=== PATIENT | female | born 1945 | race Caucasian/White ===

== ENCOUNTER 2016-07-10 06:08 | Inpatient (IN) | payer OTHER ==
[2016-06-20 10:53] VITALS: BMI 22.0
--- NOTE | 2016-06-20 11:20 | PAT Medication Instructions ---
Service Date Jun 20, 2016. Current Home Medication List Alendronate/Cholecalciferol (Fosamax+D 70MG/2800 Iu), 1 TABLET PO WK Aspirin (Aspirin Ec), 81 MG PO QAM Calcium Carbonate-Vitamin D W/ (Caltrate 600 Plus), 1 TAB PO BID Cholecalciferol (Vitamin D3), 1 CAP PO QAM Multivitamin (Multivitamin), 1 TAB PO QAM Medication Instructions For Your Scheduled Surgery - Continue as directed: Alendronate/Cholecalciferol (Fosamax+D 70MG/2800 Iu), 1 TABLET PO WK - Hold the following medications the morning of surgery: Cholecalciferol (Vitamin D3), 1 CAP PO QAM Multivitamin (Multivitamin), 1 TAB PO QAM Calcium Carbonate-Vitamin D W/ (Caltrate 600 Plus), 1 TAB PO BID - Take the following medications the morning of surgery with a sip of water OTHERWISE NOTHING TO EAT OR DRINK AFTER MIDNIGHT: Aspirin (Aspirin Ec), 81 MG PO QAM - Take the following medications as scheduled the night before surgery: Calcium Carbonate-Vitamin D W/ (Caltrate 600 Plus), 1 TAB PO BID If you have any questions please call us at [phone] or [phone] or [phone]
[2016-06-20 12:07] LABS: PARTIAL THROMBOPLASTIN RATIO 1.1; PROTHROMBIN TIME (PATIENT) 10.5 SECONDS (9.0-12.0)
[2016-06-20 12:43] LABS: ESTIMATED AVERAGE GLUCOSE 111 mg/dl; HA1C FLAG Normal (Normal)
[2016-06-20 13:12] LABS: URINE APPEARANCE CLEAR (CLEAR); URINE BILIRUBIN NEG (NEG); URINE COLOR YELLOW; URINE NITRITE NEG (NEG); URINE SPECIFIC GRAVITY 1.011 (1.000-1.030); UROBILINOGEN NEG (NEG)
[2016-06-20 13:37] LABS: MANUAL MICROSCOPIC REQUIRED? NO; REVIEW REQ? NO
--- NOTE | 2016-06-20 15:21 | History and Physical ---
History & Physical Date Jun 20, 2016. Chief Complaint Right knee pain History of Present Illness Penny is a pleasant 70-year-old female who presents for preoperative evaluation prior to a right knee replacement. Patient states that they have been having pain in this knee for many years now, which has gradually worsened, it has now gotten to the point it is affecting her daily activities including walking, standing, going up and down steps. Patient has tried and failed conservative measures including PO NSAIDs and OTC bracing with no relief. At this point in time, patient has failed conservative measures and would like to proceed with a right knee replacement. Xrays showing marked valgus deformity. Past Medical/Surgical History She denies h/o Hypertension, high cholesterol, bleeding/clotting disorders. no h /o diabetes Additional History Hepatic Disease: No Endocrine Disorder: No Kidney Disease: No Hypertension: No Bleeding Tendencies: No Infectious Diseases: No Allergies Coded Allergies: No Known Allergies (Unverified , 06/20/16) Home Medications Scheduled Alendronate/Cholecalciferol (Fosamax+D 70MG/2800 Iu), 1 TABLET PO WK Aspirin (Aspirin Ec), 81 MG PO QAM Calcium Carbonate-Vitamin D W/ (Caltrate 600 Plus), 1 TAB PO BID Cholecalciferol (Vitamin D3), 1 CAP PO QAM Multivitamin (Multivitamin), 1 TAB PO QAM Physical Examination Skin: warm/dry, no rash Eyes: normal inspection, EOMI, sclerae normal ENT: normal ENT inspection, pharynx normal Head: normocephalic, atraumatic Neck: supple, no adenopathy, trachea midline Respiratory/Chest: lungs clear, normal breath sounds, no respiratory distress Cardiovascular: regular rate, rhythm, no edema, no murmur Abdomen / GI: normal bowel sounds, non tender Addiitonal Comments: Right Knee Strength LE * Strength Description - Knee: Right: strength is decreased. Knee ROM L * Active ROM - Flexion: 135 degrees, Extension: 0 degrees, Factors: normal, Description: active pain free range of motion. Passive ROM - Flexion: 135 degrees, Extension: 0 degrees, Factors: normal, Description: passive pain free range of motion. Knee ROM R * Active ROM - Flexion: 120 degrees, Extension: 5 degrees, Factors: pain, Description: active painful range of motion. Passive ROM - Flexion: 135 degrees, Extension: 0 degrees, Factors: pain, Description: passive painful range of motion. Strength LE Normal Strength Description - Hip: Right: strength is normal. Ankle/ Foot: Right: strength is normal. Knee * Inspection - Gait: limp. Alignment - Right: Valgus, Left: neutral. Ecchymosis - Right: negative, Left: negative. Effusion - Right: mild, Left: normal. Swelling - Right: mild, Left: none. Flexibility - Right: normal, Left: normal. Maximum tenderness - Right: medial joint line, lateral joint line, patella, Left: normal. Patella exam - Crepitation - Right: mild, Left: normal. Patella position - Right: neutral, Left: neutral. Tilt - Right: equal, Left: normal. Gisel's - lateral - Right: Positive. Gisel's - medial - Right: Positive. Valgus stress - Right: Positive, trace (<2 mm). Varus stress - Right: Positive, trace (<2 mm). Knee Comments No calf tenderness Knee Normal Inspection - Atrophy - Right: Absent, Left: Absent. Skin - Right: Normal, Left: Normal. Patella exam - Apprehension - Right: Negative, Left: Negative. Q-angle - Right: Normal, Left: Normal. Rivera's - Right: Negative, Left: Negative. Gisel's - lateral - Left: Negative. Gisel's - medial - Left: Negative. Posterior drawer - Right: Negative, Left: Negative. Anterior drawer - Right: Negative, Left: Negative. Valgus stress - Left: Negative. Varus stress - Left: Negative. Neurovascular LE Normal Neurovascular examination including reflexes, sensation , and pulses is within normal limits. Right Knee Xray: Xrays reviewed of the right knee showing findings consistent with degenerative joint disease including joint space narrowing, subchondral sclerosis and peripheral osteophyte formation. no acute bony pathology, overall valgus alignment. Impression: degenerative joint disease of the right knee with no acute bony pathology noted. Diagnosis Right Knee Osteoarthritis with valgus deformity -Further care discussed with patient and at this point in time has failed conservative measures and would like to proceed with a right total knee replacement. Plan on discharge will be home with outpatient physical therapy. DVT prophalaxis with TEDs, SCDs and will also place on aspirin 81 mg p.o. b.i.d. for a month postop. Patient will have follow up appointment in our office two weeks post op for staple/suture removal and re-evaluation. Patient otherwise has no other questions or concerns.
[~2016-07-10] VITALS: Ht 160 cm; Wt 58.7 kg
[2016-07-10] VITALS (9 sets, daily range): BP systolic 101–160; BP diastolic 62–76; PULSE 61–77; TEMP 35.9–36.7; O2SAT 95–100; Ht 160 cm; Wt 58.7 kg
[~2016-07-10 06:08] MED LIST: ACETAMINOPHEN 500 MG TAB PO SCH; ASPI81TA28 PO; CALCTAB7 PO; CEFAZOLIN 1000MG/55 ML D5W 55 ML IV SCH; CHOL2000 PO; CeleBREX 200 MG CAP PO SCH; DEXAMETHASONE 4 MG TAB PO SCH; FAMOTIDINE 20 MG TAB PO SCH; FSMD/70 PO; GABAPENTIN 300 MG CAP PO SCH; LACTATED RINGER'S 1000ML 1,000 ML IV SCH; LACTATED RINGER'S 1000ML IV SCH; METOCLOPRAMIDE HCL 10 MG TAB PO SCH; MULT-506 PO; ROPIVACAINE 5MG/ML 30 ML 150 MG, BUPIVACAINE/EPINEPHR 0.5% MPF 30 ML, KETOROLAC TROMETH... INFIL SCH
[2016-07-10] MEDS: TRANEXAMIC ACID INJ 1,000 MG in SODIUM CHLORIDE 0.9% 100ML 100 ML IV SCH ×2 (06:30→07:52)
[2016-07-10] MEDS ORDERED: BUPIVACAINE 0.25% 30 ML VIAL ONE (06:37)
[2016-07-10] MEDS ORDERED: BUPIVACAINE 0.5 % 5 MG/1 ML PF 10ML VIAL ONE (06:37)
[2016-07-10] MEDS ORDERED: BACITRACIN 50000 UNIT VIAL ONE (07:01)
[2016-07-10] MEDS ORDERED: ORTHO JOINT ANESTHETIC ONE (07:01)
[2016-07-10] MEDS ORDERED: POVIDONE-IODINE OP SOLN 30 ML BTL ONE (07:01)
[2016-07-10] MEDS ORDERED: MIDAZOLAM HCL 1 MG/ML 2ML VIAL ONE (07:03)
[2016-07-10] MEDS ORDERED: PROPOFOL IV EMULSION 10 MG/ML 20 ML VIAL IV ONE (07:03)
[2016-07-10] MEDS ORDERED: PHENYLEPHRINE 100MCG/ML 5ML SYR ONE (07:03)
[2016-07-10] MEDS ORDERED: LIDOCAINE HCL 2% 2 ML VIAL (20MG/ML) ONE (07:03)
[2016-07-10] MEDS ORDERED: FENTANYL CITRATE INJ 50 MCG/1 ML 2 ML VIAL ONE (07:03)
[2016-07-10] MEDS ORDERED: EpHEDrine SULFATE 50MG/5ML SYR ONE (07:03)
--- NOTE | 2016-07-10 07:12 | History & Physical Bridge Note ---
H&P Re-Evaluation Bridge Note: I have examined the patient, reviewed the History & Physical and in the interval since the performance of the History & Physical I have noted the following changes of clinical significance: No changes noted
[2016-07-10] MEDS ORDERED: ONDANSETRON INJ 2 MG/ML 2 ML VIAL IV PRN ×2 (07:45→10:15)
[2016-07-10] MEDS ORDERED: ATROPINE SULFATE 0.1 MG/ML 5ML SYR IV PRN (07:45)
[2016-07-10] MEDS ORDERED: PHENYLEPHRINE 100MCG/ML 5ML SYR IV PRN (07:45)
[2016-07-10] MEDS ORDERED: KETOROLAC TROMETHAMINE 30 MG/ML VIAL IV. PRN (07:45)
[2016-07-10] MEDS ORDERED: EpHEDrine SULFATE INJ 50 MG/ML AMP IV PRN (07:45)
[2016-07-10] MEDS ORDERED: HYDROmorphone INJ 0.5 MG/0.5 ML SYR IV PRN (07:45)
--- NOTE | 2016-07-10 09:36 | [facility] Post Operative Brief Note ---
Immediate Operative Summary Operative Date Jul 10, 2016. Pre-Operative Diagnosis Right knee osteoarthritis with valgus deformity Post-Operative Diagnosis same as preoperative diagnosis Procedure(s) Performed Right Total Knee Arthroplasty with Constrained Poly Surgeon Dr. Powell Supervisor Pairing And Inspecting Surgeon(s) Torsten Nolan PA-C Estimated Blood Loss 5 ML Findings severe djd rt knee Specimens A. Right knee bone and tissue Complication(s) None Disposition Recovery Room / PACU
--- NOTE | 2016-07-10 09:55 | OPERATIVE REPORT ---
DATE OF OPERATION: 07/10/2016 PREOPERATIVE DIAGNOSIS: Severe endstage degenerative joint disease with valgus alignment, right knee. POSTOPERATIVE DIAGNOSIS: Same. PROCEDURE: Right total knee arthroplasty utilizing Journey II patient matched total knee arthroplasty size 5 femur, 4 tibia, 13 constrained poly, and 32 oval patella. SURGEON: Dr. Travis Powell. SOLAR BUSINESS DEVELOPER: Torsten Nolan PA-C, who was necessary for prepping, draping, retraction, wound closure of deep fascia, subQ, and skin and was necessary for the case. ESTIMATED BLOOD LOSS: 5 mL. COMPLICATIONS: None. TOURNIQUET TIME: 45 minutes. HISTORY OF PRESENT ILLNESS: The patient presents as a very pleasant 70-year-old white female with severe endstage DJD and valgus alignment of her right knee, who presents for right total knee arthroplasty. She has failed attempts at conservative management including injections, anti-inflammatories, relative rest, activity modification and presents for total knee arthroplasty. DESCRIPTION OF PROCEDURE: The patient was properly prepped and draped in supine position for total knee arthroplasty after identifying the appropriate surgical site. An anterior midline incision was made through the subcutaneous tissues down to the region of the extensor mechanism. A medial parapatellar incision was subsequently made. Meticulous hemostasis was obtained and performed at all times. The patella having been subluxed lateralward, medial and lateral meniscal remnants were excised. The patellar cut was then initially made and was sized to the appropriate size. After subluxing the tibia forward the appropriate meniscal fragments having been removed the distal femur was then cut first utilizing a Krueger and Nephew block. The distal femoral cuts and chamfer cuts were all made under direct visualization and the proximal tibial osteotomy cut was also made utilizing Kruegre and Nephew blocks and checked with an extramedullary guide. The appropriate trial components on the femur and tibia were placed. Appropriate trial spacers were used to check flexion and extension gaps. With flexion and extension gaps being equal, the components were then subsequently after thorough irrigation and debridement lavage components were then subsequently cemented in the following order: femur, tibia and patella. Exparel was used for intraoperative anesthesia, the medial parapatellar incision was closed utilizing #1 Vicryl, subQ was closed with 2-0 Vicryl, skin was closed with skin clips. A sterile compression dressing was placed. The patient was taken to recovery room in stable condition. Due to the complex nature of the procedure, the entire surgery was performed with the operational assistance of Torsten Nolan PA-C. The phlebotomist medical lab assistant, under direct supervision, was involved in the actual performance of all aspects of the surgical procedure including hemostasis, tissue retraction and incision, instrument management, patient positioning, and wound closure. I attest to the content of the Intraoperative Record and any orders documented therein. Any exceptio ns are noted below.
[2016-07-10] MEDS ORDERED: DiphenhydrAMINE HCL 50 MG/ML VIAL IV PRN (10:15)
[2016-07-10] MEDS ORDERED: ZOLPIDEM TARTRATE 5 MG TAB PO PRN (10:15)
[2016-07-10] MEDS ORDERED: BISACODYL 10 MG SUPP PR PRN (10:15)
[2016-07-10] MEDS ORDERED: MoRPHine SULFATE 2 MG/ML CARP IV PRN (10:15)
[2016-07-10] MEDS ORDERED: MAGNESIUM HYDROXIDE SUSP 30 ML UDC PO PRN (10:15)
[2016-07-10] MEDS ORDERED: ALUMINUM/MAGNESIUM/SIMETH (MAALOX MAX) 30 ML UDC PO PRN (10:15)
[2016-07-10] MEDS ORDERED: KETOROLAC TROMETHAMINE 15 MG/ML VIAL IV. PRN (10:15)
--- NOTE | 2016-07-10 10:53 | Anesthesiology Progress Note ---
Anesthesia Post Op Note Date & Time Jul 10, 2016 at 10:52 Vital Signs Pain Intensity: 0 Vital Signs Past 12 Hours Date Time Temp Pulse Resp B/P Pulse Ox O2 Delivery O2 Flow Rate FiO2 07/10/16 10:45 36.3 67 16 118/63 99 Nasal Cannula 2 07/10/16 10:35 36.3 69 16 124/63 98 Nasal Cannula 2 07/10/16 10:25 72 16 120/61 99 Nasal Cannula 2 07/10/16 10:15 72 16 119/59 100 Mask 10 07/10/16 10:09 36.3 72 16 114/59 97 Mask 10 07/10/16 06:46 36.5 68 20 160/76 98 Room Air Notes Mental Status: alert / awake / arousable, participated in evaluation Pt Amnestic to Procedure: Yes Nausea / Vomiting: adequately controlled Pain: adequately controlled Airway Patency, RR, SpO2: stable & adequate BP & HR: stable & adequate Hydration State: stable & adequate Anesthetic Complications: no major complications apparent
--- NOTE | 2016-07-10 11:01 | DIAGNOSTIC IMAGING REPORT ---
TWO VIEWS RIGHT KNEE CLINICAL HISTORY: Postoperative examination. FINDINGS: AP and crosstable lateral portable views of the right knee are obtained. A right knee arthroplasty is in near anatomic alignment. There has been undersurface remodeling of the patella. No acute fracture is seen. There are expected postoperative changes around the knee including skin clips, a surgical drain, soft tissue edema, and subcutaneous gas. IMPRESSION: Expected postoperative changes status post right knee arthroplasty. No acute fracture is seen. Electronically signed by: Kishor Loco M.D. 07/10/2016 10:59 AM Dictated Date/Time: 07/10/2016 10:59 AM
[2016-07-10] MEDS ORDERED: MoRPHine SULFATE 4 MG/ML 1 ML CARP\\VIAL IV PRN (12:00)
[2016-07-10] MEDS ORDERED: MoRPHine SULFATE 10 MG/ML CARP/VIAL IV PRN (12:15)
[2016-07-10] MEDS: D5W AND 1/2NSS + 20MEQ KCL 1,000 ML IV SCH ×2 (12:51→21:54)
[2016-07-10] MEDS: ACETAMINOPHEN 500 MG TAB PO SCH ×2 (16:00→21:55)
[2016-07-10] MEDS: CEFAZOLIN IV 1,000 MG in DEXTROSE 5% 50ML 50 ML IV SCH (16:00)
[2016-07-10] MEDS: FERROUS GLUCONATE 324 MG TAB PO SCH (17:56)
[2016-07-10] MEDS: DOCUSATE SODIUM 100 MG CAP PO SCH (20:43)
[2016-07-10] MEDS: CALCIUM 600MG + VIT D 400 IU TAB PO SCH (20:44)
[2016-07-10] MEDS: ASPIRIN 81 MG ECTAB PO SCH (20:44)
[2016-07-10] MEDS: OXYCODONE HCL 10 MG TABCR (OXYCONTIN) PO SCH (20:44)
[2016-07-10] MEDS: SENNA 8.6 MG TAB PO SCH (20:45)
[2016-07-11] MEDS: CEFAZOLIN IV 1,000 MG in DEXTROSE 5% 50ML 50 ML IV SCH (00:07)
[2016-07-11 00:11] VITALS: BP 101/61; PULSE 64; TEMP 36.8; O2SAT 96
[2016-07-11 03:15] VITALS: BP 99/62; PULSE 76; TEMP 37; O2SAT 95
[2016-07-11] MEDS: ACETAMINOPHEN 500 MG TAB PO SCH ×2 (05:35→18:22)
[2016-07-11 06:07] LABS: HEMATOCRIT 33.9 % (37-47); MEAN CELL VOLUME 90.2 fL (80-100); MEAN CORPUSCULAR HEMOGLOBIN 30.1 pg (25-34); MEAN CORPUSCULAR HGB CONC 33.3 g/dl (32-36); MEAN PLATELET VOLUME 10.3 fL (7.4-10.4); PLATELET COUNT 227 K/uL (130-400); RED BLOOD COUNT 3.76 M/uL (4.2-5.4); WHITE BLOOD COUNT 13.08 K/uL (4.8-10.8)
[2016-07-11 06:25] LABS: BUN/CREATININE RATIO 19.9 (10-20); CALCIUM 8.8 mg/dl (8.5-10.1); CREATININE 0.74 mg/dl (0.60-1.20); POTASSIUM 4.3 mmol/L (3.5-5.1)
[2016-07-11 07:13] VITALS: BP 120/70; PULSE 58; TEMP 36.4; O2SAT 99
--- NOTE | 2016-07-11 08:42 | Orthopedic Progress Note ---
Orthopedic Progress Note Date of Service Jul 11, 2016. Subjective Post OP Day: 1 Reports: feeling well, pain controlled w PO medications, Denies: complaints Objective calves soft nontender, N/V intact, dressing C/D/I, A&O x3, toes mobile Date Time Temp Pulse Resp B/P Pulse Ox O2 Delivery O2 Flow Rate FiO2 07/11/16 07:13 36.4 58 16 120/70 99 Room Air 07/11/16 03:15 37.0 76 14 99/62 95 Room Air 07/11/16 00:11 36.8 64 14 101/61 96 Room Air 07/11/16 00:05 Room Air 07/10/16 20:03 36.7 61 16 105/64 98 Room Air 07/10/16 16:09 70 95 Room Air 07/10/16 15:00 36.7 73 16 101/63 98 Nasal Cannula 2.0 07/10/16 14:02 36.6 69 16 102/63 99 Nasal Cannula 2.0 07/10/16 13:01 77 16 113/62 99 Nasal Cannula 2.0 07/10/16 11:59 35.9 69 16 115/65 100 Nasal Cannula 2.0 07/10/16 11:30 36.2 70 16 117/65 100 Nasal Cannula 2.0 07/10/16 11:00 96 Nasal Cannula 2.0 07/10/16 11:00 36.4 74 18 112/65 96 Nasal Cannula 2.0 07/10/16 11:00 96 Nasal Cannula 2.0 07/10/16 10:45 36.3 67 16 118/63 99 Nasal Cannula 2 07/10/16 10:35 36.3 69 16 124/63 98 Nasal Cannula 2 07/10/16 10:25 72 16 120/61 99 Nasal Cannula 2 07/10/16 10:15 72 16 119/59 100 Mask 10 07/10/16 10:09 36.3 72 16 114/59 97 Mask 10 Laboratory Results 24 Hours: Test 07/11/16 05:45 Hematocrit 33.9 % Hemoglobin 11.3 g/dL Assessment & Plan Assessment: POD 1 s/p Right TKA Plan: PT/OT Planning for OPPT upon dc Inhouse Planning Pain Management: Toradol, Oxycontin, Morphine, PO Tylenol, Oxy IR DVT Prophylaxis: TEDs, SCDs, ASA Discharge Planning Discharge Planning: home with oppt Pain Management: Oxycontin, PO Tylenol, Oxy IR DVT Prophylaxis: TEDs, ASA Therapy: Physical Therapy
[2016-07-11] MEDS: D5W AND 1/2NSS + 20MEQ KCL 1,000 ML IV SCH (08:43)
[2016-07-11] MEDS: DOCUSATE SODIUM 100 MG CAP PO SCH ×2 (08:43→21:01)
[2016-07-11] MEDS: CHOLECALCIFEROL 1000 INTER.UNIT TAB PO SCH (08:44)
[2016-07-11] MEDS: CALCIUM 600MG + VIT D 400 IU TAB PO SCH ×2 (08:44→21:01)
[2016-07-11] MEDS: ASPIRIN 81 MG ECTAB PO SCH ×2 (08:44→21:01)
[2016-07-11] MEDS: PANTOprazole SOD 40 MG TAB PO SCH (08:44)
[2016-07-11] MEDS: MULTIVITAMIN TAB PO SCH (08:45)
[2016-07-11] MEDS: FERROUS GLUCONATE 324 MG TAB PO SCH ×3 (08:45→18:22)
[2016-07-11] MEDS: OXYCODONE HCL 10 MG TABCR (OXYCONTIN) PO SCH ×2 (08:50→21:00)
--- NOTE | 2016-07-11 08:57 | Anesthesiology Progress Note ---
Anesthesia Post Op Note Date & Time Jul 11, 2016 at 08:55 Vital Signs Pain Intensity: 0.0 Vital Signs Past 12 Hours Date Time Temp Pulse Resp B/P Pulse Ox O2 Delivery O2 Flow Rate FiO2 07/11/16 07:13 36.4 58 16 120/70 99 Room Air 07/11/16 03:15 37.0 76 14 99/62 95 Room Air 07/11/16 00:11 36.8 64 14 101/61 96 Room Air 07/11/16 00:05 Room Air Notes Mental Status: alert / awake / arousable, participated in evaluation Pt Amnestic to Procedure: Yes Nausea / Vomiting: adequately controlled Pain: adequately controlled Airway Patency, RR, SpO2: stable & adequate BP & HR: stable & adequate Hydration State: stable & adequate Neuraxial Anesthesia: sensory block resolved Anesthetic Complications: no major complications apparent
--- NOTE | 2016-07-11 09:11 | Discharge Instructions ---
Discharge Instructions Date of Service Jul 11, 2016. Admission Reason for Admission: Right Knee Osteoarthritis Discharge Discharge Diagnosis / Problem: Right Knee Djd Discharge Goals Goal(s): Decrease discomfort, Improve function Activity Recommendations Activity Limitations: per Instructions/Follow-up section Weightbearing Status: Right weightbearing (as tolerated) . Instructions / Follow-Up Instructions / Follow-Up ACTIVITY RECOMMENDATIONS: SELF CARE INSTRUCTIONS AFTER TOTAL KNEE REPLACEMENT A. You may need to continue a physical therapy program after discharge from the hospital. There are several options available to you. Your doctor will assist you in selecting the best one for you. 1. An out-patient facility 2 to 3 times a week for therapy or home therapy. 2. Continue working on all exercises taught to you in the hospital. Your goals should be to increase bending of your knee to 90 degrees and beyond and to fully straighten your knee. B. You may progress at your own pace from walking with a walker or crutches to a cane; then to no assistive devices. C. Make walking a part of your daily routine. Be up as much as comfortable with rest periods throughout the day. Rest with leg elevation is very important. Use the ice wrap frequently for the first 3-4 weeks. D. There are no restrictions on activities. You may ride in a car, shop, participate in adjunct lecturer and all social activities. E. Wear the long elastic stockings (EMILIA hose) 20 hours a day for 2 weeks after surgery. They can be removed several times a day for laundering and for a bath. F. You may shower, no tub baths until cleared by your doctor. SPECIAL CARE INSTRUCTIONS: VERY IMPORTANT TO READ AND REVIEW A. There are a few signs you need to watch for after you are home. Call [facility] if you notice any of the followin. Increased severe knee pain. Some pain is expected especially when you exercise. 2. Increased swelling in your leg or knee; pain or swelling of the calf muscle in either lower leg. 3. Any fluid drainage from the incision. 4. Shortness of breath or chest pain. B. Please call [facility] at if you have any concerns or questions about your operation or recovery. The doctor or his nurse will return your call promptly. C. You must take antibiotics before dental work, bladder, bowel or other surgery. Your doctor will provide you with a permanent care to carry describing this precaution. IMPORTANT: * REMEMBER TO TAKE ASPIRIN, 81 MG, TWICE DAILY FOR 4 WEEKS UNLESS OTHERWISE DIRECTED. THIS IS YOUR BLOOD THINNER. * HIGH RISK PATIENTS MAY BE PRESCRIBED A STRONGER BLOOD THINNER. THIS WILL BE PROVIDED AT DISCHARGE. * CALL IF INCREASED PAIN, REDNESS, DRAINAGE OR FEVER GREATER THAT 101. * WEAR EMILIA HOSE 20 HOURS PER DAY FOR 2 WEEKS. * Silverlon- This is a large adhesive bandage that contains silver ions. This helps your incision heal by fighting off bacteria and protecting it from the outside environment. You are permitted to shower with this dressing. This will remain on your incision for 7 days and then should be removed. Some visible blood or drainage through the dressing window is normal. If there is significant drainage or leaking noted before the 7 days notify your doctor's office immediately. Once removed, keep incision clean and dry. If there is any drainage or redness noted, please call your surgeon. . FOLLOW UP VISIT: If appointment is not already scheduled: Please call [facility] to make a follow-up appointment for 2 weeks after your surgery at . Current Hospital Diet Patient's current hospital diet: Regular Diet Discharge Diet Recommended Diet: Regular Diet Procedures Procedures Performed: Right Total Knee Arthroplasty with Constrained Poly Pending Studies Studies pending at discharge: no Laboratory Results Hemoglobin A1c Test 06/20/16 11:28 Range/Units Estimated Average Glucose 111 mg/dl Hemoglobin A1c 5.5 4.5-5.6 % Medical Emergencies . Who to Call and When: Medical Emergencies: If at any time you feel your situation is an emergency, please call 911 immediately. . Non-Emergent Contact Non-Emergency issues call your: Surgeon Call Non-Emergent contact if: temperature is above 101.5, your pain is not controlled, your pain is worsening, wound has increased drainage, wound has increased redness . "Provider Documentation" section prepared by Torsten Nolan. VTE Core Measure Inpt VTE Proph given/why not?: Other Anticoagulation, T.E.D. Stockings, SCD's [place] Drug Monitoring Program Search Results: patient reviewed within database, no issues identified
[2016-07-11 11:12] VITALS: BP 104/53; PULSE 63; TEMP 36.2; O2SAT 100
[2016-07-11] MEDS: OXYCODONE HCL IR 5 MG TAB (IMMEDIATE RELEASE) PO PRN (12:54)
[2016-07-11 15:25] VITALS: BP 121/71; PULSE 67; TEMP 36.6; O2SAT 99
[2016-07-11] MEDS: SENNA 8.6 MG TAB PO SCH (21:01)
[2016-07-11] MEDS ORDERED: NURSING VERBAL MED ORDER ONE (22:45)
[2016-07-11 23:52] VITALS: BP 131/74; PULSE 75; TEMP 36.8; O2SAT 96
[2016-07-12] MEDS: ACETAMINOPHEN 500 MG TAB PO SCH ×2 (05:43→14:24)
--- NOTE | 2016-07-12 07:24 | Orthopedic Progress Note ---
Orthopedic Progress Note Date of Service Jul 12, 2016. Subjective Post OP Day: 2 Reports: feeling well, pain controlled w PO medications, Denies: SOB, calf pain , chest pain, complaints, light headedness, nausea / vomiting Objective calves soft nontender, N/V intact, capillary refill less than 2 sec., dressing C /D/I (silverlon intact), A&O x3, toes mobile Date Time Temp Pulse Resp B/P Pulse Ox O2 Delivery O2 Flow Rate FiO2 07/12/16 00:00 Room Air 07/11/16 23:52 36.8 75 14 131/74 96 Room Air 07/11/16 17:00 Room Air 07/11/16 15:25 36.6 67 16 121/71 99 Room Air 07/11/16 11:12 36.2 63 16 104/53 100 Room Air 07/11/16 07:25 Room Air Assessment & Plan Assessment: POD 2 s/p Right TKA Plan: PT/OT Planning for OPPT upon dc, possibly after PT today Discharge Planning Discharge Planning: home with oppt Pain Management: Oxycontin, PO Tylenol, Oxy IR DVT Prophylaxis: TEDs, ASA Therapy: Physical Therapy
[2016-07-12] MEDS ORDERED: ACET-1138 PO (07:34)
[2016-07-12] MEDS ORDERED: RXC5 PO (07:34)
[2016-07-12] MEDS ORDERED: OXYSR10 PO (07:34)
[2016-07-12] MEDS ORDERED: ASPEC81 PO (07:34)
[2016-07-12] MEDS ORDERED: ONDA8TAB6 PO (07:34)
[2016-07-12 07:53] VITALS: BP 125/76; PULSE 85; TEMP 36.8; O2SAT 97
[2016-07-12] MEDS: OXYCODONE HCL IR 5 MG TAB (IMMEDIATE RELEASE) PO PRN ×2 (07:57→14:23)
[2016-07-12] MEDS: CALCIUM 600MG + VIT D 400 IU TAB PO SCH (08:36)
[2016-07-12] MEDS: ASPIRIN 81 MG ECTAB PO SCH (08:36)
[2016-07-12] MEDS: MULTIVITAMIN TAB PO SCH (08:36)
[2016-07-12] MEDS: PANTOprazole SOD 40 MG TAB PO SCH (08:37)
[2016-07-12] MEDS: DOCUSATE SODIUM 100 MG CAP PO SCH (08:37)
[2016-07-12] MEDS: CHOLECALCIFEROL 1000 INTER.UNIT TAB PO SCH (08:37)
[2016-07-12] MEDS: FERROUS GLUCONATE 324 MG TAB PO SCH ×2 (08:37→12:51)
[2016-07-12] MEDS: OXYCODONE HCL 10 MG TABCR (OXYCONTIN) PO SCH (08:40)
[2016-07-12 09:23] VITALS: BP 125/76; PULSE 85; TEMP 36.8; O2SAT 97
--- NOTE | 2016-07-16 16:58 | DISCHARGE SUMMARY ---
DISCHARGE DIAGNOSIS: Degenerative joint disease, right knee. CONSULTS: None. COMPLICATIONS: None. PROCEDURES: Right total knee arthroplasty performed by Dr. Powell on 07/10/2016. BRIEF HISTORY: As dictated in the history and physical. HOSPITAL SUMMARY: The patient was admitted on the above date and had the above-noted surgery performed which she tolerated well. On the first postoperative day, patient was feeling well and pain was controlled. Calves were soft and nontender. Neurovascularly intact. Vital signs were stable. She is afebrile. Hemoglobin was 11.3 and she was started on physical therapy protocol and continued on DVT prophylaxis and pain management. By her second postoperative day, she was feeling well, pain was controlled and she had no complaints. Dressings were intact. Toes were mobile. Vital signs were stable and neurovascularly intact and it was felt she could be discharged to home with outpatient PT. For further review, please see chart. LABORATORY AND X-RAY DATA: As per chart. DISCHARGE INSTRUCTIONS: The patient was discharged to home in satisfactory condition on 07/12/2016. DIET: Regular. ACTIVITY: Weightbearing as tolerated right, lower extremity. Follow TK instruction sheets and special care instructions as noted. Follow up with Dr. Powell in 2 weeks. The patient to call for appointment if one has not been made for you. DISCHARGE MEDICATIONS: Acetaminophen 1000 mg p.o. q. 8 hours, aspirin 81 mg p.o. b.i.d., Zofran 8 mg p.o. q. 8 hours p.r.n., oxycodone 5-10 mg p.o. q. 4 hours p.r.n., OxyContin 10 mg p.o. q. 12 hours. Resume Fosamax 1 tab p.o. weekly, Caltrate 600+ one tab p.o. b.i.d., vitamin D3 one cap p.o. q.a.m., multivitamin 1 tab p.o. q.a.m. and after 30 days stop taking aspirin twice daily and resume once daily dosing.
== END 2016-07-12 14:40 | disposition home or self-care (01) | DRG 470 ==
LOC: ENRESERVDT → ENRESERVTM → C.ACU 06:08 → C.3E 06:57
PROVIDERS: ADMIT Orthopaedic Surgery; ATTEND Orthopaedic Surgery
PROC: 0SRC0J9 Replacement of Right Knee Joint with Synthetic Substitute, Cemented, Open Approach (ICD-10-PCS; principal; 2016-07-10 08:15)
DX: M17.11 Unilateral primary osteoarthritis, right knee (principal); M21.061 Valgus deformity, not elsewhere classified, right knee; Z79.82 Long term (current) use of aspirin; Z79.83 Long term (current) use of bisphosphonates; Z01.818 Encounter for other preprocedural examination